=== PATIENT | female | born 1980 | race Caucasian/White ===

== ENCOUNTER 2017-03-24 11:53 | Emergency (ER) | payer SELFPAY ==
[~2017-03-24] VITALS: Ht 167.6 cm; Wt 61.7 kg
[~2017-03-24 11:53] MED LIST: NORE1TAB76 PO
[2017-03-24 12:34] VITALS: BP 139/75
--- NOTE | 2017-03-24 14:47 | ED.ADGEN ---
Past Medical History Past Medical History: CAD, Kidney Stone, UTI, Other Additional Past Medical Histor: drug abuse, sepsis Past Surgical History: Tubal ligation Additional Past Surgical Histo: lithotripsy Alcohol Use: None Drug Use: None Social History Narrative: former drug abuser Adult General Chief Complaint Chief Complaint: MULTIPLE COMPLAINTS HPI HPI Patient is a 36 year old female former IV drug user who presents with swelling of bilateral upper extremities and hands and otherwise lashing and fatigue. Patient has noted bilateral hands and on for the past week. She denies numbness pain or rash. Patient states her rings feel as though they are tight. Patient also reports about hot flashes throughout the day and feeling flushed. Denies fever, chills, nausea vomiting and sweats. No chest pain palpitations, leg pain or swelling. No other acute symptoms or complaints. Patient denies current drug and alcohol use. She is waiting to pain insurance for her employers so she may be seen by a PCP. Review of Systems Review of Systems Review symptoms as per history of present illness. All other review symptoms are negative. Allergies Allergies Allergies Coded Allergies Type Severity Reaction Last Updated Verified No Known Drug Allergies 03/18/16 No Physical Exam Physical Exam Constitutional: Well developed, well nourished, no acute distress, non-toxic appearance. [] HENT: Normocephalic, atraumatic, bilateral external ears normal, oropharynx moist, no oral exudates, nose normal. [] Eyes: PERRLA, EOMI, conjunctiva normal, no discharge. [] Neck: Normal range of motion, no tenderness, supple, no stridor. [] Cardiovascular:Heart rate regular rhythm, no murmur [] Lungs & Thorax: Bilateral breath sounds clear to auscultation [] Abdomen: Bowel sounds normal, soft, no tenderness, no masses, no pulsatile masses. [] Skin: Warm, dry, no erythema, no rash. [] Back: No tenderness [] Extremities: Minor swelling of bilateral hands. No joint erythema bruising or redness [] Neurologic: Alert and oriented X 3, normal motor function, normal sensory function, no focal deficits noted. [] Psychologic: Affect, anxious [] Current Patient Data Vital Signs Vital Signs Date Time Temp Pulse Resp B/P (MAP) Pulse Ox O2 Delivery O2 Flow Rate FiO2 03/24/17 12:34 114 18 139/75 (96) 97 03/24/17 12:00 98.5 Room Air 98.5 EKG EKG [] Radiology/Procedures Radiology/Procedures [] Course & Med Decision Making Course & Med Decision Making Pertinent Labs and Imaging studies reviewed. (See chart for details) [Patient with multiple nonspecific's symptoms including feelings of fatigue, bilateral hand swelling, and flushing. Patient also is nervous or anxious about her symptoms with concern of previous IV drug abuse. Patient's exam is essentially benign. Recommendations are to continue ibuprofen to follow-up with PCP early next week. Return precautions reviewed. Patient verbalizes understanding agreement with discharge instructions prior to departure. A courtesy work note was provided.] Dragon Disclaimer Dragon Disclaimer This electronic medical record was generated, in whole or in part, using a voice recognition dictation system. UMAIR MOSLEY DO Mar 24, 2017 14:47
== END 2017-03-24 12:57 | disposition home or self-care (01) ==
LOC: ER 11:53
DX: M79.89 Other specified soft tissue disorders (principal); R53.83 Other fatigue; Z87.442 Personal history of urinary calculi; I25.10 Atherosclerotic heart disease of native coronary artery without angina pectoris; Z98.51 Tubal ligation status
CPT/HCPCS: 99281

== ENCOUNTER 2017-04-15 20:24 | Emergency (ER) | payer SELFPAY ==
[~2017-04-15] VITALS: Ht 160 cm; Wt 59.0 kg
[2017-04-15 20:40] VITALS: BP 132/79
[2017-04-15] MEDS ORDERED: PROAIR HFA8.5 GM INH (20:59)
[2017-04-15] MEDS ORDERED: PRED20TA PO (20:59)
--- NOTE | 2017-04-15 21:00 | PHYS DOC ---
Past Medical History Past Medical History: CAD, Kidney Stone, UTI, Other Additional Past Medical Histor: drug abuse, sepsis Past Surgical History: Tubal ligation Additional Past Surgical Histo: lithotripsy Alcohol Use: None Drug Use: None Adult General Chief Complaint Chief Complaint: Congestion HPI HPI Patient is a 36 year old E male presents to the emergency department with a one -day history of cough. No other symptoms. Review of Systems Review of Systems Constitutional: Denies fever or chills [] Eyes: Denies change in visual acuity, redness, or eye pain [] HENT: Denies nasal congestion or sore throat [] Respiratory: Cough without shortness of breath or wheezing Cardiovascular: No additional information not addressed in HPI [] GI: Denies abdominal pain, nausea, vomiting, bloody stools or diarrhea [] : Denies dysuria or hematuria [] Musculoskeletal: Denies back pain or joint pain [] Integument: Denies rash or skin lesions [] Neurologic: Denies headache, focal weakness or sensory changes [] Endocrine: Denies polyuria or polydipsia [] Allergies Allergies Allergies Coded Allergies Type Severity Reaction Last Updated Verified No Known Drug Allergies 03/18/16 No Physical Exam Physical Exam Constitutional: Well developed, well nourished, no acute distress, non-toxic appearance. [] HENT: Normocephalic, atraumatic, bilateral external ears normal, left tympanic membrane with effusion, oropharynx moist, no oral exudates, nose normal. [] Eyes: PERRLA, EOMI, conjunctiva normal, no discharge. [] Neck: Normal range of motion, no tenderness, supple, no stridor. [] Cardiovascular:Heart rate regular rhythm, no murmur [] Lungs & Thorax: Diminished throughout Abdomen: Bowel sounds normal, soft, no tenderness, no masses, no pulsatile masses. [] Skin: Warm, dry, no erythema, no rash. [] Back: No tenderness, no CVA tenderness. [] Extremities: No tenderness, no cyanosis, no clubbing, ROM intact, no edema. [] Neurologic: Alert and oriented X 3, normal motor function, normal sensory function, no focal deficits noted. [] Psychologic: Affect normal, judgement normal, mood normal. [] Current Patient Data Vital Signs Vital Signs Date Time Temp Pulse Resp B/P (MAP) Pulse Ox O2 Delivery O2 Flow Rate FiO2 8/30/17 20:40 98.7 107 18 99 Room Air 98.7 EKG EKG [] Radiology/Procedures Radiology/Procedures [] Course & Med Decision Making Course & Med Decision Making Pertinent Labs and Imaging studies reviewed. (See chart for details) [] Dragon Disclaimer Dragon Disclaimer This electronic medical record was generated, in whole or in part, using a voice recognition dictation system. Departure Departure Impression: Primary Impression: Upper respiratory infection Disposition: HOME, SELF-CARE Condition: STABLE Referrals: NO PCP (PCP) Patient Instructions: Smoking Cessation, Upper Respiratory Infection, Adult Scripts Prednisone (PREDNISONE) 20 Mg Tablet 1 TAB PO DAILY, #5 TAB Prov: ALICIA JORGE APRN 04/15/17 Albuterol Sulfate (PROAIR HFA INHALER) 8.5 Gm Hfa.aer.ad 1 PUFF INH PRN Q6HRS Y for SHORTNESS OF BREATH, #1 INHALER 0 Refills Prov: ALICIA JORGE APRN 04/15/17 Problem Qualifiers Primary Impression: Upper respiratory infection URI type: unspecified viral URI Qualified Codes: J06.9 - Acute upper respiratory infection, unspecified; B97.89 - Other viral agents as the cause of diseases classified elsewhere ALICIA JORGE APRN Apr 15, 2017 20:59
== END 2017-04-15 21:21 | disposition home or self-care (01) ==
LOC: ER 20:24
DX: J06.9 Acute upper respiratory infection, unspecified (principal); B97.89 Other viral agents as the cause of diseases classified elsewhere; I25.10 Atherosclerotic heart disease of native coronary artery without angina pectoris
CPT/HCPCS: 99283

== ENCOUNTER 2017-04-25 17:30 | Emergency (ER) | payer SELFPAY ==
[~2017-04-25] VITALS: Ht 160 cm; Wt 59.0 kg
[~2017-04-25 17:30] MED LIST changes: +PRED20TA PO; +PROAIR HFA8.5 GM INH
[2017-04-25 17:53] VITALS: BP 130/76
--- NOTE | 2017-04-25 17:59 | PHYS DOC ---
Past Medical History Past Medical History: CAD, Kidney Stone, UTI, Other Additional Past Medical Histor: drug abuse, sepsis Past Surgical History: Tubal ligation Additional Past Surgical Histo: lithotripsy Alcohol Use: None Drug Use: None Adult General Chief Complaint Chief Complaint: FOREIGN BODY VAGINA HPI HPI Patient is a 36 year old presents to the ED with c/o possible vaginal FB. She states that she believes there is a tampon in her vagina for one day. She states that this has happened to her before. She denies abd pain, vaginal discharge or irritation Review of Systems Review of Systems Constitutional: Denies fever or chills [] Eyes: Denies change in visual acuity, redness, or eye pain [] HENT: Denies nasal congestion or sore throat [] Respiratory: Denies cough or shortness of breath [] Cardiovascular: No additional information not addressed in HPI [] GI: Denies abdominal pain, nausea, vomiting, bloody stools or diarrhea [] : Denies dysuria or hematuria [] Musculoskeletal: Denies back pain or joint pain [] Integument: Denies rash or skin lesions [] Neurologic: Denies headache, focal weakness or sensory changes [] Endocrine: Denies polyuria or polydipsia [] Allergies Allergies Allergies Coded Allergies Type Severity Reaction Last Updated Verified No Known Drug Allergies 03/18/16 No Physical Exam Physical Exam Constitutional: Well developed, well nourished, no acute distress, non-toxic appearance. [] Cardiovascular:Heart rate regular rhythm, no murmur [] Lungs & Thorax: Bilateral breath sounds clear to auscultation [] Abdomen: Bowel sounds normal, soft, no tenderness, no masses, no pulsatile masses. [] Skin: Warm, dry, no erythema, no rash. : Genitalia normal. Vaginal opening, obvious foreign body. Current Patient Data Vital Signs Vital Signs Date Time Temp Pulse Resp B/P (MAP) Pulse Ox O2 Delivery O2 Flow Rate FiO2 04/25/17 17:53 98.2 110 16 98 Room Air 98.2 EKG EKG [] Radiology/Procedures Radiology/Procedures Procedure note: Vaginal foreign body:[]Foreign body removed with ring forceps. Patient tolerated well Course & Med Decision Making Course & Med Decision Making Pertinent Labs and Imaging studies reviewed. (See chart for details) [] Dragon Disclaimer Dragon Disclaimer This electronic medical record was generated, in whole or in part, using a voice recognition dictation system. Departure Departure Impression: Primary Impression: Vaginal foreign body Disposition: 01 HOME, SELF-CARE Condition: STABLE Referrals: NO PCP (PCP) [facility] Patient Instructions: Vaginal Foreign Body, [id number] Problem Qualifiers Primary Impression: Vaginal foreign body Encounter type: initial encounter Qualified Codes: T19.2XXA - Foreign body in vulva and vagina, initial encounter ALICIA JORGE DISPATCHER SERVICE CHIEF Apr 25, 2017 17:59
== END 2017-04-25 18:11 | disposition home or self-care (01) ==
LOC: ER 17:30
DX: T19.2XXA Foreign body in vulva and vagina, initial encounter (principal); I25.10 Atherosclerotic heart disease of native coronary artery without angina pectoris; Z87.442 Personal history of urinary calculi; Z87.440 Personal history of urinary (tract) infections; X58.XXXA Exposure to other specified factors, initial encounter; Y93.89 Activity, other specified; Y92.89 Other specified places as the place of occurrence of the external cause; Y99.8 Other external cause status
CPT/HCPCS: 99284

== ENCOUNTER 2018-05-23 23:27 | Emergency (ER) | payer SELFPAY ==
[~2018-05-23] VITALS: Ht 160 cm; Wt 62.6 kg
[2018-05-24 00:05] VITALS: BP 128/76
[2018-05-24] MEDS ORDERED: CEPH-264 PO (02:23)
[2018-05-24] MEDS ORDERED: SULF1TAB24 PO (02:23)
[2018-05-24] MEDS ORDERED: HYDR-971 PO (02:23)
[2018-05-24] MEDS ORDERED: MUPI15CR TP (02:23)
--- NOTE | 2018-05-24 02:23 | PHYS DOC ---
Past Medical History Past Medical History: CAD, Kidney Stone, UTI, Other Additional Past Medical Histor: drug abuse, sepsis Past Surgical History: Tubal ligation Additional Past Surgical Histo: lithotripsy Alcohol Use: None Drug Use: None Adult General Chief Complaint Chief Complaint: INSECT BITE [facility] HPI Patient is a 38 year old [f__sex] who presents with [] Review of Systems Review of Systems Constitutional: Denies fever or chills [] Eyes: Denies change in visual acuity, redness, or eye pain [] HENT: Denies nasal congestion or sore throat [] Respiratory: Denies cough or shortness of breath [] Cardiovascular: No additional information not addressed in HPI [] GI: Denies abdominal pain, nausea, vomiting, bloody stools or diarrhea [] : Denies dysuria or hematuria [] Musculoskeletal: Denies back pain or joint pain [] Integument: Denies rash or skin lesions [] Neurologic: Denies headache, focal weakness or sensory changes [] Endocrine: Denies polyuria or polydipsia [] All other systems were reviewed and found to be within normal limits, except as documented in this note. Allergies Allergies Allergies Coded Allergies Type Severity Reaction Last Updated Verified No Known Drug Allergies 03/18/16 No Physical Exam Physical Exam Constitutional: Well developed, well nourished, no acute distress, non-toxic appearance. [] HENT: Normocephalic, atraumatic, bilateral external ears normal, oropharynx moist, no oral exudates, nose normal. [] Eyes: PERRLA, EOMI, conjunctiva normal, no discharge. [] Neck: Normal range of motion, no tenderness, supple, no stridor. [] Cardiovascular:Heart rate regular rhythm, no murmur [] Lungs & Thorax: Bilateral breath sounds clear to auscultation [] Abdomen: Bowel sounds normal, soft, no tenderness, no masses, no pulsatile masses. [] Skin: Warm, dry, no erythema, no rash. [] Back: No tenderness, no CVA tenderness. [] Extremities: No tenderness, no cyanosis, no clubbing, ROM intact, no edema. [] Neurologic: Alert and oriented X 3, normal motor function, normal sensory function, no focal deficits noted. [] Psychologic: Affect normal, judgement normal, mood normal. [] Current Patient Data Vital Signs Vital Signs Date Time Temp Pulse Resp B/P (MAP) Pulse Ox O2 Delivery O2 Flow Rate FiO2 05/24/18 00:05 98.1 92 16 128/76 (93) 100 Room Air 98.1 EKG EKG [] Radiology/Procedures Radiology/Procedures [] Course & Med Decision Making Course & Med Decision Making Pertinent Labs and Imaging studies reviewed. (See chart for details) [] Dragon Disclaimer Dragon Disclaimer This electronic medical record was generated, in whole or in part, using a voice recognition dictation system. Departure Departure Impression: Primary Impression: Left arm cellulitis Additional Impression: Insect bite Disposition: HOME, SELF-CARE Condition: STABLE Referrals: NO PCP (PCP) Patient Instructions: Cellulitis, Nemv-[id number], Insect Bite, Mzzp-[id number] Scripts Mupirocin Calcium (BACTROBAN CREAM) 15 Gm Cream..g. 1 ARTEMIO TP TID for 10 Days, #30 GM Prov: ORTEGA RICO DO 05/24/18 Hydrocodone/Apap 5-325 (NORCO 5-325 TABLET) 1 Each Tablet 1 TAB PO PRN Q6HRS PRN for PAIN, #10 TAB 0 Refills Prov: ORTEGA RICO DO 05/24/18 Cephalexin (KEFLEX) 500 Mg Capsule 500 MG PO QID for 10 Days, #40 CAP Prov: ORTEGA RICO DO 05/24/18 Sulfamethoxazole/Trimethoprim (BACTRIM DS TABLET) 1 Each Tablet 2 EACH PO BID for 10 Days, #40 TAB Prov: ORTEGA RICO DO 05/24/18 Problem Qualifiers Additional Impression: Insect bite Encounter type: initial encounter Qualified Codes: W57.XXXA - Bitten or stung by nonvenomous insect and other nonvenomous arthropods, initial encounter ORTEGA RICO DO May 24, 2018 02:23
[2018-05-24] MEDS ORDERED: NEOMY/BACITR/POLYMYXIN OINT PACKET. TP ONE (02:30)
[2018-05-24] MEDS ORDERED: SMZ/TMP 800/160MG TABLET. PO ONE (02:30)
[2018-05-24] MEDS ORDERED: CEPHALEXIN 250 MG CAPSULE. PO ONE (02:30)
[2018-05-24] MEDS ORDERED: HYDROcodone/APAP 5/325MG 1 TAB TABLET PO ONE (02:30)
== END 2018-05-24 02:57 | disposition home or self-care (01) ==
LOC: ER 23:27
DX: S40.862A Insect bite (nonvenomous) of left upper arm, initial encounter (principal); L03.114 Cellulitis of left upper limb; I25.10 Atherosclerotic heart disease of native coronary artery without angina pectoris; Z87.442 Personal history of urinary calculi; Z98.51 Tubal ligation status; W57.XXXA Bitten or stung by nonvenomous insect and other nonvenomous arthropods, initial encounter; Y93.89 Activity, other specified; Y92.89 Other specified places as the place of occurrence of the external cause; Y99.8 Other external cause status
CPT/HCPCS: 99284

== ENCOUNTER 2018-12-02 22:29 | Emergency (ER) | payer SELFPAY ==
[~2018-12-02] VITALS: Ht 157.5 cm; Wt 62.6 kg
[~2018-12-02 22:29] MED LIST changes: +ALBU2.5V8 INH; +CEPH-264 PO; +HYDR-3164 PO; +MUPI15CR TP; -PROAIR HFA8.5 GM INH; +SULF1TAB24 PO
[2018-12-02 22:47] VITALS: BP 131/71
[2018-12-02] MEDS ORDERED: cefTRIAXone IM 1 GM VIAL IM ONE (23:15)
[2018-12-02] MEDS ORDERED: AMOX500C PO (23:15)
[2018-12-02] MEDS ORDERED: ACET-704 PO (23:15)
--- NOTE | 2018-12-02 23:15 | PHYS DOC ---
Past Medical History Past Medical History: CAD, Kidney Stone, UTI, Other Additional Past Medical Histor: drug abuse, sepsis (TORI BARRERA) Past Surgical History: Tubal ligation Additional Past Surgical Histo: lithotripsy (TORI BARRERA) Alcohol Use: None Drug Use: None (TORI BARRERA) Adult General Chief Complaint Chief Complaint: DENTAL PROBLEM HPI HPI Patient is a 38 year old F who is here with lower jaw swelling related to 2 carious teeth. Pt reports the teeth have been broken for some time but pain and swelling started in last week. (TORI BARRERA) Review of Systems Review of Systems Constitutional: Denies fever or chills HENT: Denies nasal congestion or sore throat. Reports dental pain. Respiratory: Denies cough or shortness of breath Cardiovascular: Denies chest pain. GI: Denies abdominal pain, nausea, vomiting, bloody stools or diarrhea Musculoskeletal: Denies back pain or joint pain Integument: Denies rash or skin lesions Neurologic: Denies headache, focal weakness or sensory changes All other systems were reviewed and found to be within normal limits, except as documented in this note. (TORI BARRERA) Current Medications Current Medications Current Medications Medications (Trade) Dose Ordered Sig/Rafi Start Time Stop Time Status Last Admin Dose Admin Ceftriaxone Sodium (Rocephin Im) 1 gm 1X ONCE 12/02/18 23:15 12/02/18 23:16 DC 12/02/18 23:34 1 GM (ORTEGA RICO DO) Allergies Allergies Allergies Coded Allergies Type Severity Reaction Last Updated Verified No Known Drug Allergies 03/18/16 No (ORTEGA RICO DO) Physical Exam Physical Exam Constitutional: Well developed, well nourished, no acute distress, non-toxic appearance. Appears uncomfortable. HENT: Normocephalic, atraumatic, bilateral external ears normal, oropharynx moist, no oral exudates, nose normal. Lower R gumline shows 2 teeth that are carious and broken to the gumline, gum is tender and indurated but not fluctuant. Neck: Normal range of motion, no tenderness, supple, no stridor. Cardiovascular:Heart rate regular rhythm, no murmur Lungs & Thorax: Bilateral breath sounds clear to auscultation Abdomen: Bowel sounds normal, soft, no tenderness, no masses, no pulsatile masses. Skin: Warm, dry, no erythema, no rash. Back: No tenderness, no CVA tenderness. Extremities: No tenderness, no cyanosis, no clubbing, ROM intact, no edema. Neurologic: Alert and oriented X 3, normal motor function, normal sensory function, no focal deficits noted. Psychologic: Affect normal, judgement normal, mood normal. (TORI BARRERA) Current Patient Data Vital Signs Vital Signs Date Time Temp Pulse Resp B/P (MAP) Pulse Ox O2 Delivery O2 Flow Rate FiO2 12/02/18 22:47 98.4 101 20 131/71 (91) 100 Room Air 98.4 (ORTEGA RICO DO) EKG EKG [] (TORI BARRERA) Radiology/Procedures Radiology/Procedures [] (TORI BARRERA) Course & Med Decision Making Course & Med Decision Making Pertinent Labs and Imaging studies reviewed. (See chart for details) Due to gum swelling, recommended IM abx shot here in ER to help get treatment started. Abx and pain control for home and dental list provided. Discussed importance of close f/u with dentist. Salt water gargles or mouth wash gargles and frequent teeth brushing. (TORI BARRERA) Dragon Disclaimer Dragon Disclaimer This electronic medical record was generated, in whole or in part, using a voice recognition dictation system. (TORI BARRERA) Departure Departure Impression: Primary Impression: Dental abscess Disposition: 01 HOME, SELF-CARE Condition: STABLE Referrals: NO PCP (PCP) Patient Instructions: Dental Abscess Additional Instructions: Mouth wash or salt water gargles after meals and frequent teeth brushing. Follow up with your dentist as soon as possible. Scripts Acetaminophen With Codeine (TYLENOL WITH CODEINE #3 TABLET) 1 Each Tablet 1 TAB PO PRN Q4HRS PRN for PAIN, #15 TAB Prov: TORI BARRERA 12/02/18 Amoxicillin (AMOXICILLIN) 500 Mg Capsule 1 CAP PO TID, #30 CAP Prov: TORI BARRERA 12/02/18 Attending Signature Attending Signature I have reviewed the PA/[employer]SP[employer]'s note and plan of care. I was available for consultation as needed during the patient's visit in the emergency department. I agree with the clinical impression, plan, and disposition. (ORTEGA RICO DO) TORI BARRERA Dec 02, 2018 23:15 ORTEGA RICO DO Dec 07, 2018 05:12
== END 2018-12-02 23:43 | disposition home or self-care (01) ==
LOC: ER 22:29
DX: K04.7 Periapical abscess without sinus (principal); I25.10 Atherosclerotic heart disease of native coronary artery without angina pectoris
CPT/HCPCS: 96372; 99283; J0696

== ENCOUNTER 2020-03-19 20:50 | Emergency (ER) | payer SELFPAY ==
[~2020-03-19] VITALS: Ht 160 cm; Wt 68.2 kg
[~2020-03-19 20:50] MED LIST changes: +ACET-704 PO; +AMOX500C PO; +NORE-108 PO; -NORE1TAB76 PO
[2020-03-19] MEDS ORDERED: cefTRIAXone IM 250 MG VIAL IM ONE (23:30)
[2020-03-19] MEDS ORDERED: AZITHROMYCIN 250 MG TABLET. PO ONE (23:30)
[2020-03-19] MEDS ORDERED: METR500T PO (23:48)
--- NOTE | 2020-03-19 23:48 | PHYS DOC ---
Past Medical History Past Medical History: CAD, Hyperthyroid, Kidney Stone, UTI, Other Additional Past Medical Histor: drug abuse, sepsis Past Surgical History: Tubal ligation Additional Past Surgical Histo: lithotripsy Smoking Status: Current Every Day Smoker Alcohol Use: Occasionally Drug Use: None General Adult EDM: Chief Complaint: FOREIGN BODY VAGINA HPI: HPI: Patient is a 39 year old female who presents the emergency department with complaints of possibly having a retained tampon in her vagina. She reports that she and her significant other have recently ordered a foul smell and some irregular vaginal discharge. She states that her significant other told her that he felt something inside of her when the last had intercourse. She denies any abnormal vaginal bleeding. She denies any dysuria, hematuria, low back pain, abdominal pain, nausea, vomiting, diarrhea, back pain, or fever. Cu rrently reports a pressure in her pelvis that she rates a 2 out of 10 on the pain scale, she denies any radiation of the pain, she denies any alleviating or exacerbating factors. Review of Systems: Review of Systems: Constitutional: Denies fever or chills. [] HENT: Denies nasal congestion or sore throat. [] Respiratory: Denies cough or shortness of breath. [] GI: Denies nausea, vomiting, or diarrhea. [] : See HPI Musculoskeletal: Denies back pain or joint pain. [] Integument: Denies rash. [] Neurologic: Denies headache Psychiatric: Denies depression or anxiety. [] Heart Score: Risk Factors: Risk Factors: DM, Current or recent (<one month) smoker, HTN, HLP, family history of CAD, obesity. Risk Scores: Score 0 - 3: 2.5% MACE over next 6 weeks - Discharge Home Score 4 - 6: 20.3% MACE over next 6 weeks - Admit for Clinical Observation Score 7 - 10: 72.7% MACE over next 6 weeks - Early Invasive Strategies Current Medications: Current Medications Medications (Trade) Dose Ordered Sig/Rafi Start Time Stop Time Status Last Admin Dose Admin Azithromycin (Zithromax) 1,000 mg 1X ONCE 03/19/20 23:30 03/19/20 23:31 DC Ceftriaxone Sodium (Rocephin Im) 250 mg 1X ONCE 03/19/20 23:30 03/19/20 23:31 DC Allergies: Allergies: Allergies Coded Allergies Type Severity Reaction Last Updated Verified No Known Drug Allergies 03/18/16 No Physical Exam: PE: Constitutional: Well developed, well nourished, no acute distress, non-toxic appearance. HENT: Normocephalic, atraumatic, bilateral external ears normal, nose normal. Eyes: PERRLA, EOMI, conjunctiva normal, no discharge. Neck: Normal range of motion, no stridor. Cardiovascular: Heart rate regular rhythm Lungs & Thorax: Respirations even and unlabored, no retractions, no respiratory distress Pelvic Exam: Data Modeling Specialist present Felicita RN Abdomen: Nontender, soft External Genitalia: Normal Skin Speculum: Normal vaginal mucosa; malodorous, thick, white, cervical discharge; no visible foreign body Bimanual: No adnexal masses or tenderness, No CMT, no palpable foreign body Skin: Warm, dry, no erythema, no rash. Extremities: No cyanosis, ROM intact, no edema. Neurologic: Alert and oriented X 3, no focal deficits noted. Psychologic: Affect normal, judgement normal, mood normal. Current Patient Data: Labs: Microbiology 03/19/20 Wet Prep - Final, Complete Vital Signs: Vital Signs Date Time Temp Pulse Resp B/P (MAP) Pulse Ox O2 Delivery O2 Flow Rate FiO2 03/19/20 22:17 98.1 85 20 154/83 (106) 100 Room Air 98.1 EKG: EKG: [] Radiology/Procedures: Radiology/Procedures: [] Course & Med Decision Making: Course & Med Decision Making Pertinent Labs and Imaging studies reviewed. (See chart for details) [] Dragon Disclaimer: Dragjuan Disclaimer: This electronic medical record was generated, in whole or in part, using a voice recognition dictation system. Departure Departure Impression: Primary Impression: Trichomonas vaginitis Additional Impressions: Bacterial vaginosis Contact with and (suspected) exposure to infections with a predominantly sexual mode of transmission Disposition: 01 HOME, SELF-CARE Condition: STABLE Referrals: NO PCP (PCP) Patient Instructions: Bacterial Vaginosis, [id number], Sexually Transmitted Disease, [id number], Trichomoniasis-Brief Additional Instructions: Fill the prescription and use as directed. Recommend that you go to your local health department for comprehensive sexually transmitted disease testing. You have been treated for a suspected gonorrhea and chlamydia. Avoid having intercourse until the results of gonorrhea and chlamydia testing are available, these results will not be available for 48 hours. If one or both of these tests is positive, you need to refrain from intercourse for approximately 1 week following the treatment of any current partners. Follow-up with your primary care doctor if symptoms persist, return to ER symptoms worsen. Scripts Metronidazole (FLAGYL) 500 Mg Tablet 1 TAB PO BID, #14 TAB 0 Refills Prov: MAX VERDUGO CEO NA 03/19/20 Justicifation of Admission Dx: Justifications for Admission: Justification of Admission Dx: N/A MAX VERDUGO CEO NA Mar 19, 2020 23:48
[2020-03-19 23:55] VITALS: BP 129/70
[2020-03-21 22:09] LABS: GC PROBE Negative (Negative)
== END 2020-03-19 23:52 | disposition home or self-care (01) ==
LOC: ER 20:50
DX: A59.01 Trichomonal vulvovaginitis (principal); N76.0 Acute vaginitis; B96.89 Other specified bacterial agents as the cause of diseases classified elsewhere; E05.90 Thyrotoxicosis, unspecified without thyrotoxic crisis or storm; I25.10 Atherosclerotic heart disease of native coronary artery without angina pectoris; F17.200 Nicotine dependence, unspecified, uncomplicated; Z87.442 Personal history of urinary calculi; Z98.51 Tubal ligation status; Z20.2 Contact with and (suspected) exposure to infections with a predominantly sexual mode of transmission; Z98.890 Other specified postprocedural states
CPT/HCPCS: 87491; 87591; 96372; 99284; J0696; Q0111; 36415